=== PATIENT | male | born 1955 | race Caucasian/White ===

== ENCOUNTER → 2016-05-18 | Outpatient (REF) | payer BC ==
[2016-05-18 12:03] LABS: BASO % 0.3 % (0.0-1.0); EOS # 0.2 K/mm3 (0.0-0.50); EOS % 1.8 % (0.0-3.0); LARGE UNSTAINED CELL # 0.2 K/mm3 (0.0-0.4); LARGE UNSTAINED CELL % 1.8 % (0.0-4.0); LYMPH # 1.6 K/mm3 (1.5-4.5); LYMPH % 15.9 % (24.0-44.0); MEAN CORPUSCULAR HEMOGLOBIN 31.5 pg (27.0-33.0); MEAN CORPUSCULAR HGB CONC 33.6 g/dl (32.0-36.5); MEAN CORPUSCULAR VOLUME 93.6 fl (80.0-96.0); MONO # 0.6 K/mm3 (0.0-0.8); NEUTROPHILS # 6.9 K/mm3 (1.8-7.7); NEUTROPHILS % 74.2 % (36.0-66.0); PLATELET COUNT, AUTOMATED 169 k/mm3 (150-450); RED CELL DISTRIBUTION WIDTH 12.3 % (11.5-14.5); WHITE BLOOD COUNT 9.3 K/mm3 (4.0-10.0)
[2016-05-18 12:33] LABS: ALBUMIN 3.8 GM/DL (3.2-5.2); ALBUMIN/GLOBULIN RATIO 1.12 (1.00-1.93); ALKALINE PHOSPHATASE 78 U/L (45-117); ALT/SGPT 35 U/L (12-78); ANION GAP 7 MEQ/L (8-16); AST/SGOT 19 U/L (15-37); BILIRUBIN,TOTAL 0.6 MG/DL (0.2-1.0); BLOOD UREA NITROGEN 19 MG/DL (7-18); CALCIUM LEVEL 9.1 MG/DL (8.8-10.2); CARBON DIOXIDE LEVEL 28 MEQ/L (21-32); CHLORIDE LEVEL 104 MEQ/L (98-107); CHOLESTEROL LEVEL 219 MG/DL (<200); CREATININE FOR GFR 0.97 MG/DL (0.70-1.30); GLOMERULAR FILTRATION RATE > 60.0 (>49); GLUCOSE, FASTING 114 MG/DL (80-110); POTASSIUM SERUM 3.8 MEQ/L (3.5-5.1); SODIUM LEVEL 139 MEQ/L (136-145); TOTAL PROTEIN 7.2 GM/DL (6.4-8.2); TRIGLYCERIDES LEVEL 133 MG/DL (<150)
== END ==
LOC: M LABDRAW1 11:34
PROVIDERS: ATTEND Family Medicine
DX: R73.01 Impaired fasting glucose (principal); E78.2 Mixed hyperlipidemia; I10 Essential (primary) hypertension

== ENCOUNTER → 2016-11-16 | Outpatient (REF) | payer BC ==
[2016-11-16 12:23] LABS: ALBUMIN 3.7 GM/DL (3.2-5.2); ALBUMIN/GLOBULIN RATIO 1.06 (1.00-1.93); ALKALINE PHOSPHATASE 69 U/L (45-117); ALT/SGPT 39 U/L (12-78); ANION GAP 7 MEQ/L (8-16); AST/SGOT 19 U/L (15-37); BILIRUBIN,TOTAL 0.5 MG/DL (0.2-1.0); BLOOD UREA NITROGEN 18 MG/DL (7-18); CALCIUM LEVEL 9.2 MG/DL (8.8-10.2); CARBON DIOXIDE LEVEL 27 MEQ/L (21-32); CHLORIDE LEVEL 103 MEQ/L (98-107); CREATININE FOR GFR 0.95 MG/DL (0.70-1.30); GLOMERULAR FILTRATION RATE > 60.0 (>49); GLUCOSE, FASTING 111 MG/DL (80-110); SODIUM LEVEL 137 MEQ/L (136-145); TOTAL PROTEIN 7.2 GM/DL (6.4-8.2)
== END ==
LOC: M LABDRAW1 10:26
PROVIDERS: ATTEND Family Medicine
DX: E13.9 Other specified diabetes mellitus without complications (principal)

== ENCOUNTER → 2016-11-17 | Outpatient (REF) | payer BC | LOC: M LABDRAW1 09:45 | PROVIDERS: ATTEND Family Medicine | DX: E13.9 Other specified diabetes mellitus without complications (principal) ==

== ENCOUNTER → 2017-05-11 | Outpatient (REF) | payer BC ==
[2017-05-11 16:02] LABS: ALBUMIN 3.9 GM/DL (3.2-5.2); ALBUMIN/GLOBULIN RATIO 0.93 (1.00-1.93); ALKALINE PHOSPHATASE 88 U/L (45-117); ALT/SGPT 40 U/L (12-78); ANION GAP 6 MEQ/L (8-16); AST/SGOT 26 U/L (7-37); BILIRUBIN,TOTAL 0.4 MG/DL (0.2-1.0); BLOOD UREA NITROGEN 14 MG/DL (7-18); CALCIUM LEVEL 9.4 MG/DL (8.8-10.2); CARBON DIOXIDE LEVEL 30 MEQ/L (21-32); CHLORIDE LEVEL 106 MEQ/L (98-107); CREATININE FOR GFR 1.06 MG/DL (0.70-1.30); GLOMERULAR FILTRATION RATE > 60.0 (>49); GLUCOSE, FASTING 111 MG/DL (70-100); POTASSIUM SERUM 4.7 MEQ/L (3.5-5.1); SODIUM LEVEL 142 MEQ/L (136-145); TOTAL PROTEIN 8.1 GM/DL (6.4-8.2)
[2017-05-11 16:14] LABS: ESTIMATED AVERAGE GLUCOSE 160 MG/DL (60-110); HEMOGLOBIN A1c 7.2 %
== END ==
LOC: M LABDRAW1 12:01
DX: E13.9 Other specified diabetes mellitus without complications (principal)
CPT/HCPCS: 80053

== ENCOUNTER → 2017-08-11 | Outpatient (REF) | payer BC ==
[2017-08-11 11:14] LABS: ALBUMIN 3.8 GM/DL (3.2-5.2); ALBUMIN/GLOBULIN RATIO 1.03 (1.00-1.93); ALKALINE PHOSPHATASE 69 U/L (45-117); ALT/SGPT 45 U/L (12-78); ANION GAP 7 MEQ/L (8-16); AST/SGOT 33 U/L (7-37); BILIRUBIN,TOTAL 0.5 MG/DL (0.2-1.0); BLOOD UREA NITROGEN 20 MG/DL (7-18); CARBON DIOXIDE LEVEL 27 MEQ/L (21-32); CHLORIDE LEVEL 106 MEQ/L (98-107); CREATININE FOR GFR 0.96 MG/DL (0.70-1.30); GLOMERULAR FILTRATION RATE > 60.0 (>49); GLUCOSE, FASTING 125 MG/DL (70-100); POTASSIUM SERUM 4.6 MEQ/L (3.5-5.1); SODIUM LEVEL 140 MEQ/L (136-145); TOTAL PROTEIN 7.5 GM/DL (6.4-8.2)
[2017-08-11 11:52] LABS: ESTIMATED AVERAGE GLUCOSE 143 MG/DL (60-110); HEMOGLOBIN A1c 6.6 %
== END ==
LOC: M LABDRAW1 09:25
DX: E11.69 Type 2 diabetes mellitus with other specified complication (principal)
CPT/HCPCS: 80053

== ENCOUNTER → 2017-11-17 | Outpatient (REF) | payer BC ==
[2017-11-17 11:41] LABS: BASO # 0.1 10^3/uL (0.0-0.2); BASO % 0.7 % (0.0-1.0); EOS # 0.5 10^3/uL (0.0-0.50); HEMATOCRIT 43.2 % (42.0-52.0); HEMOGLOBIN 14.2 g/dl (13.5-17.5); IMMATURE GRANULOCYTE % 0.3 % (0-3.0); LYMPH # 1.6 10^3/uL (1.5-4.5); LYMPH % 23.3 % (24.0-44.0); MEAN CORPUSCULAR HEMOGLOBIN 29.6 pg (27.0-33.0); MEAN CORPUSCULAR HGB CONC 32.9 g/dl (32.0-36.5); MEAN CORPUSCULAR VOLUME 90.2 fl (80.0-96.0); MONO # 0.7 10^3/uL (0.0-0.8); MONO % 9.2 % (0.0-5.0); NEUTROPHILS # 4.2 10^3/uL (1.8-7.7); NEUTROPHILS % 59.5 % (36.0-66.0); PLATELET COUNT, AUTOMATED 204 10^3/uL (150-450); RED BLOOD COUNT 4.79 10^6/uL (4.30-6.10); RED CELL DISTRIBUTION WIDTH 13.9 % (11.5-14.5)
[2017-11-17 12:29] LABS: ALBUMIN/GLOBULIN RATIO 1.14 (1.00-1.93); ALKALINE PHOSPHATASE 70 U/L (45-117); ALT/SGPT 35 U/L (12-78); ANION GAP 8 MEQ/L (8-16); AST/SGOT 26 U/L (7-37); BILIRUBIN,TOTAL 0.6 MG/DL (0.2-1.0); BLOOD UREA NITROGEN 15 MG/DL (7-18); CALCIUM LEVEL 9.1 MG/DL (8.8-10.2); CARBON DIOXIDE LEVEL 29 MEQ/L (21-32); CHLORIDE LEVEL 104 MEQ/L (98-107); CHOLESTEROL LEVEL 220 MG/DL (<200); CHOLESTEROL RISK RATIO 4.074 (<5); CREATININE FOR GFR 0.94 MG/DL (0.70-1.30); GLOMERULAR FILTRATION RATE > 60.0 (>49); GLUCOSE, FASTING 111 MG/DL (70-100); HDL CHOLESTEROL 54 MG/DL (>40); LDL CHOLESTEROL 120 MG/DL (<100); NON-HDL-C 166 MG/DL; POTASSIUM SERUM 4.4 MEQ/L (3.5-5.1); SODIUM LEVEL 141 MEQ/L (136-145); TOTAL PROTEIN 7.5 GM/DL (6.4-8.2); TRIGLYCERIDES LEVEL 228 MG/DL (<150)
[2017-11-17 12:34] LABS: ESTIMATED AVERAGE GLUCOSE 143 MG/DL (60-110); HEMOGLOBIN A1c 6.6 %
[2017-11-17 12:51] LABS: MALB URINE SIEMENS 14.4 MG/L
[2017-11-17 12:53] LABS: MAU/CREAT RATIO 12.6 MCG/MG (0.0-30.0)
== END ==
LOC: M LABDRAW1 10:05
DX: E11.69 Type 2 diabetes mellitus with other specified complication (principal)
CPT/HCPCS: 80053

== ENCOUNTER → 2018-05-25 | Outpatient (REF) | payer BC ==
[2018-05-25 13:10] LABS: BASO # 0.1 10^3/uL (0.0-0.2); BASO % 0.7 % (0.0-1.0); EOS # 0.5 10^3/uL (0.0-0.50); EOS % 6.8 % (0.0-3.0); HEMATOCRIT 43.4 % (42.0-52.0); HEMOGLOBIN 14.3 g/dl (13.5-17.5); LYMPH # 1.7 10^3/uL (1.5-4.5); LYMPH % 23.2 % (24.0-44.0); MEAN CORPUSCULAR HGB CONC 32.9 g/dl (32.0-36.5); MEAN CORPUSCULAR VOLUME 93.9 fl (80.0-96.0); MONO # 0.6 10^3/uL (0.0-0.8); MONO % 8.7 % (0.0-5.0); NEUTROPHILS # 4.4 10^3/uL (1.8-7.7); NEUTROPHILS % 60.2 % (36.0-66.0); PLATELET COUNT, AUTOMATED 216 10^3/uL (150-450); RED BLOOD COUNT 4.62 10^6/uL (4.30-6.10); WHITE BLOOD COUNT 7.4 10^3/uL (4.0-10.0)
[2018-05-25 14:16] LABS: MALB URINE SIEMENS 24.5 MG/L; MAU/CREAT RATIO 17.6 MCG/MG (0.0-30.0)
[2018-05-25 14:18] LABS: ALBUMIN 3.8 GM/DL (3.2-5.2); ALT/SGPT 38 U/L (12-78); BILIRUBIN,TOTAL 0.6 MG/DL (0.2-1.0); BLOOD UREA NITROGEN 13 MG/DL (7-18); CALCIUM LEVEL 9.2 MG/DL (8.8-10.2); CARBON DIOXIDE LEVEL 30 MEQ/L (21-32); CHLORIDE LEVEL 104 MEQ/L (98-107); CHOLESTEROL LEVEL 174 MG/DL (<200); CREATININE FOR GFR 0.96 MG/DL (0.70-1.30); GLOMERULAR FILTRATION RATE > 60.0 (>49); GLUCOSE, FASTING 124 MG/DL (70-100); HDL CHOLESTEROL 60 MG/DL (>40); LDL CHOLESTEROL 82 MG/DL (<100); NON-HDL-C 114 MG/DL; POTASSIUM SERUM 4.1 MEQ/L (3.5-5.1); SODIUM LEVEL 138 MEQ/L (136-145); TOTAL PROTEIN 7.5 GM/DL (6.4-8.2); TRIGLYCERIDES LEVEL 159 MG/DL (<150)
[2018-05-25 15:10] LABS: HEMOGLOBIN A1c 7.1 %
== END ==
LOC: M LABDRAW1 12:18
PROVIDERS: ATTEND Family Medicine
DX: E11.69 Type 2 diabetes mellitus with other specified complication (principal)

== ENCOUNTER → 2018-08-22 | Outpatient (REF) | payer BC ==
[2018-08-22 13:32] LABS: BLOOD UREA NITROGEN 18 MG/DL (7-18); CALCIUM LEVEL 8.6 MG/DL (8.8-10.2); CARBON DIOXIDE LEVEL 28 MEQ/L (21-32); CHLORIDE LEVEL 107 MEQ/L (98-107); CREATININE FOR GFR 1.12 MG/DL (0.70-1.30); GLOMERULAR FILTRATION RATE > 60.0 (>49); GLUCOSE, FASTING 160 MG/DL (70-100); SODIUM LEVEL 140 MEQ/L (136-145)
[2018-08-22 13:58] LABS: HEMOGLOBIN A1c 6.9 %
== END ==
LOC: M LABDRAW1 10:34
PROVIDERS: ATTEND Family Medicine
DX: E11.69 Type 2 diabetes mellitus with other specified complication (principal)

== ENCOUNTER → 2018-11-21 | Outpatient (REF) | payer BC ==
[2018-11-21 12:55] LABS: HEMOGLOBIN A1c 6.3 %
== END ==
LOC: M LABDRAW1 08:53
PROVIDERS: ATTEND Family Medicine
DX: E11.69 Type 2 diabetes mellitus with other specified complication (principal)

== ENCOUNTER → 2020-08-20 | Outpatient (CLI) | payer BC ==
[2020-08-20 15:41] LABS: BASO # 0.1 10^3/uL (0.0-0.2); BASO % 0.7 % (0.0-1.0); EOS # 0.4 10^3/uL (0.0-0.5); EOS % 4.9 % (0.0-3.0); HEMATOCRIT 44.1 % (42.0-52.0); HEMOGLOBIN 14.8 g/dl (13.5-17.5); LYMPH # 1.8 10^3/uL (1.5-5.0); LYMPH % 23.6 % (24.0-44.0); MEAN CORPUSCULAR HEMOGLOBIN 32.7 pg (27.0-33.0); MEAN CORPUSCULAR HGB CONC 33.6 g/dl (32.0-36.5); MEAN CORPUSCULAR VOLUME 97.4 fl (80.0-96.0); MONO # 0.9 10^3/uL (0.0-0.8); MONO % 11.5 % (2.0-8.0); NEUTROPHILS # 4.5 10^3/uL (1.5-8.5); NEUTROPHILS % 58.8 % (36.0-66.0); PLATELET COUNT, AUTOMATED 219 10^3/uL (150-450); RED BLOOD COUNT 4.53 10^6/uL (4.30-6.10); WHITE BLOOD COUNT 7.6 10^3/uL (4.0-10.0)
[2020-08-20 15:59] LABS: HEMOGLOBIN A1c 7.7 %
[2020-08-20 16:11] LABS: ALBUMIN 3.7 GM/DL (3.2-5.2); ALT/SGPT 53 U/L (12-78); BILIRUBIN,TOTAL 0.5 MG/DL (0.2-1.0); BLOOD UREA NITROGEN 15 MG/DL (7-18); CALCIUM LEVEL 8.8 MG/DL (8.8-10.2); CARBON DIOXIDE LEVEL 28 MEQ/L (21-32); CHLORIDE LEVEL 105 MEQ/L (98-107); CHOLESTEROL LEVEL 220 MG/DL (<200); CREATININE FOR GFR 1.02 MG/DL (0.70-1.30); GLOMERULAR FILTRATION RATE > 60.0 (>49); GLUCOSE, FASTING 196 MG/DL (70-100); HDL CHOLESTEROL 52 MG/DL (>40); LDL CHOLESTEROL 114 MG/DL (<100); NON-HDL-C 168 MG/DL; POTASSIUM SERUM 4.2 MEQ/L (3.5-5.1); SODIUM LEVEL 138 MEQ/L (136-145); TOTAL PROTEIN 7.6 GM/DL (6.4-8.2); TRIGLYCERIDES LEVEL 268 MG/DL (<150)
[2020-08-20 16:17] LABS: MALB URINE SIEMENS 35.6 MG/L; MAU/CREAT RATIO 36.3 MCG/MG (0.0-30.0)
== END ==
LOC: M WUC 11:42
PROVIDERS: ATTEND Family Medicine
DX: Z00.00 Encounter for general adult medical examination without abnormal findings (principal); E11.69 Type 2 diabetes mellitus with other specified complication

== ENCOUNTER → 2020-11-17 | Outpatient (CLI) | payer BC ==
[2020-11-17 11:10] LABS: ALBUMIN 3.7 GM/DL (3.2-5.2); ALT/SGPT 37 U/L (12-78); BILIRUBIN,TOTAL 0.5 MG/DL (0.2-1.0); BLOOD UREA NITROGEN 18 MG/DL (7-18); CALCIUM LEVEL 9.4 MG/DL (8.8-10.2); CARBON DIOXIDE LEVEL 27 MEQ/L (21-32); CHLORIDE LEVEL 104 MEQ/L (98-107); CHOLESTEROL LEVEL 147 MG/DL (<200); CHOLESTEROL RISK RATIO 2.722 (<5); CREATININE FOR GFR 0.93 MG/DL (0.70-1.30); GLOMERULAR FILTRATION RATE > 60.0 (>49); GLUCOSE, FASTING 147 MG/DL (70-100); HDL CHOLESTEROL 54 MG/DL (>40); LDL CHOLESTEROL 51 MG/DL (<100); NON-HDL-C 93 MG/DL; POTASSIUM SERUM 4.2 MEQ/L (3.5-5.1); SODIUM LEVEL 138 MEQ/L (136-145); TOTAL PROTEIN 7.9 GM/DL (6.4-8.2); TRIGLYCERIDES LEVEL 211 MG/DL (<150)
[2020-11-17 11:35] LABS: HEMOGLOBIN A1c 7.3 %
== END ==
LOC: M WUC 08:49
PROVIDERS: ATTEND Family Medicine
DX: E11.69 Type 2 diabetes mellitus with other specified complication (principal)

== ENCOUNTER → 2021-05-12 | Outpatient (CLI) | payer BC ==
[2021-05-12 13:08] LABS: HEMOGLOBIN A1c 8.3 %
[2021-05-12 13:12] LABS: ALBUMIN 3.8 GM/DL (3.2-5.2); ALT/SGPT 31 U/L (12-78); BILIRUBIN,TOTAL 0.5 MG/DL (0.2-1.0); BLOOD UREA NITROGEN 18 MG/DL (7-18); CALCIUM LEVEL 9.1 MG/DL (8.8-10.2); CARBON DIOXIDE LEVEL 31 MEQ/L (21-32); CHLORIDE LEVEL 107 MEQ/L (98-107); CHOLESTEROL LEVEL 143 MG/DL (<200); CHOLESTEROL RISK RATIO 2.553 (<5); CREATININE FOR GFR 1.03 MG/DL (0.70-1.30); GLOMERULAR FILTRATION RATE > 60.0 (>49); GLUCOSE, FASTING 185 MG/DL (70-100); HDL CHOLESTEROL 56 MG/DL (>40); LDL CHOLESTEROL 42 MG/DL (<100); NON-HDL-C 87 MG/DL; POTASSIUM SERUM 4.3 MEQ/L (3.5-5.1); SODIUM LEVEL 141 MEQ/L (136-145); TOTAL PROTEIN 7.3 GM/DL (6.4-8.2); TRIGLYCERIDES LEVEL 225 MG/DL (<150)
[2021-05-12 13:20] LABS: MALB URINE SIEMENS 40.1 MG/L; MAU/CREAT RATIO 33.6 MCG/MG (0.0-30.0)
== END ==
LOC: M WUC 09:01
PROVIDERS: ATTEND Student in an Organized Health Care Education/Training Program
DX: E11.9 Type 2 diabetes mellitus without complications (principal)

== ENCOUNTER → 2021-05-18 | Outpatient (CLI) | payer BC, MEDICARE | LOC: M WUC 09:44 | PROVIDERS: ATTEND Student in an Organized Health Care Education/Training Program | DX: R05.3 Chronic cough (principal) ==

== ENCOUNTER → 2021-07-15 | Outpatient (CLI) | payer BC, MEDICARE ==
[~2021-07-15] MED LIST: AMLO1TAB24 PO; GABA-282 PO; LISI10TA22 PO; METF500T13 PO; ROSU5TAB5 PO
== END ==
LOC: M LABSMTC 10:43
PROVIDERS: ATTEND Anesthesiology
DX: Z01.812 Encounter for preprocedural laboratory examination (principal)

== ENCOUNTER → 2021-07-15 | Outpatient (CLI) | payer MEDICARE, BC ==
[~2021-07-15] MED LIST changes: +HYDR-3715 PO
== END ==
LOC: M EKG 11:53
PROVIDERS: ATTEND Anesthesiology
DX: Z01.818 Encounter for other preprocedural examination (principal); R03.0 Elevated blood-pressure reading, without diagnosis of hypertension; E11.9 Type 2 diabetes mellitus without complications

== ENCOUNTER 2021-07-20 06:15 | Day surgery (SDC) | payer MEDICARE, BC ==
[~2021-07-20] VITALS: Ht 185.4 cm; Wt 90.3 kg
[~2021-07-20 06:15] MED LIST changes: -HYDR-3715 PO
[2021-07-20] MEDS ORDERED: LR 1,000 ML IV SCH ×3 (06:40→10:45)
[2021-07-20] MEDS ORDERED: INSULIN LISPRO (NovoLOG) PER UNIT SC PRN ×2 (06:40→11:15)
[2021-07-20] MEDS ORDERED: BUPIVACAINE HCL 0.25% 30ML VIAL As Ordered ONE (07:16)
[2021-07-20] MEDS ORDERED: ROCURONIUM BROMIDE 50 MG/5 ML VIAL As Ordered ONE ×2 (08:05→08:19)
[2021-07-20] MEDS ORDERED: MIDAZOLAM INJ 2MG/2ML VIAL (J2250 PER 1MG) As Ordered ONE (08:05)
[2021-07-20] MEDS ORDERED: dexameTHASONE 4 MG/ML 1ML VIAL (J1100 PER 1MG) As Ordered ONE (08:05)
[2021-07-20] MEDS ORDERED: fentaNYL 250 MCG/5 ML INJECTION As Ordered ONE (08:05)
[2021-07-20] MEDS ORDERED: propofoL 200 MG/20 ML VIAL As Ordered ONE (08:05)
[2021-07-20] MEDS ORDERED: LIDOCAINE 2% 100MG/5ML SDV (FOR ANES.) As Ordered ONE (08:05)
[2021-07-20] MEDS ORDERED: ONDANSETRON 4MG 2ML VIAL As Ordered ONE (08:05)
[2021-07-20] MEDS ORDERED: KETOROLAC 60MG 2ML VIAL As Ordered ONE (08:45)
[2021-07-20] MEDS ORDERED: SUGAMMADEX SODIUM 500 MG/5 ML VIAL (BRIDION) As Ordered ONE (08:45)
[2021-07-20] MEDS ORDERED: ACETAMINOPHEN 1000MG 100ML IV BTL (OFIRMEV) (J0131 PER 10MG) As Ordered ONE (08:47)
[2021-07-20] MEDS ORDERED: fentaNYL 100 MCG/2 ML INJECTION IV PRN (10:45)
[2021-07-20] MEDS ORDERED: ONDANSETRON 4MG 2ML VIAL IV PRN (10:45)
[2021-07-20] MEDS ORDERED: HYDROMORPHONE HCL 0.5 MG/ 0.5 ML SYRINGE (J1170 PER 1) IV PRN (10:45)
[2021-07-20] MEDS ORDERED: oxyCODONE 5MG TAB PO PRN (10:45)
[2021-07-20] MEDS ORDERED: ACETAMINOPHEN TAB 650MG DOSE (2X325MG) PO PRN (10:55)
[2021-07-20] MEDS ORDERED: IBUPROFEN 600MG TAB PO PRN (11:00)
[2021-07-20] MEDS ORDERED: NORCO, ANEXSIA 5/325MG TABLET (HYDROcodone/ACETAMINOPHEN) PO PRN (11:00)
[2021-07-20] MEDS ORDERED: HYDR-3715 PO (11:19)
[2021-07-20 13:10] VITALS: BP 157/71
== END 2021-07-20 13:44 | disposition home or self-care (01) ==
LOC: M SDC 06:15
PROVIDERS: ATTEND Surgery
DX: K40.20 Bilateral inguinal hernia, without obstruction or gangrene, not specified as recurrent (principal); E11.9 Type 2 diabetes mellitus without complications; I10 Essential (primary) hypertension; M19.90 Unspecified osteoarthritis, unspecified site; R06.83 Snoring; Z79.899 Other long term (current) drug therapy; Z79.84 Long term (current) use of oral hypoglycemic drugs; Z88.0 Allergy status to penicillin; Z88.1 Allergy status to other antibiotic agents; Z88.2 Allergy status to sulfonamides; Z91.018 Allergy to other foods
CPT/HCPCS: 49650; C1781; J0131; J1100; J1815; J1885; J2250; J2405; J3010; S2900

== ENCOUNTER → 2021-08-10 | Outpatient (REF) | payer MEDICARE ==
[~2021-08-10] MED LIST changes: +HYDR-3715 PO
[2021-08-10 13:28] LABS: HEMOGLOBIN A1c 7.1 %
== END ==
LOC: M LABWUC 11:41
PROVIDERS: ATTEND Student in an Organized Health Care Education/Training Program
DX: E11.9 Type 2 diabetes mellitus without complications (principal)

== ENCOUNTER → 2021-11-23 | Outpatient (REF) | payer MEDICARE ==
[2021-11-23 18:42] LABS: BASO % 0.4 % (0.0-1.0); EOS # 0.4 10^3/uL (0.0-0.5); EOS % 4.5 % (0.0-3.0); HEMATOCRIT 42.7 % (42.0-52.0); HEMOGLOBIN 13.9 g/dl (13.5-17.5); MEAN CORPUSCULAR HEMOGLOBIN 32.3 pg (27.0-33.0); MEAN CORPUSCULAR HGB CONC 32.6 g/dl (32.0-36.5); MEAN CORPUSCULAR VOLUME 99.1 fl (80.0-96.0); MONO # 0.8 10^3/uL (0.0-0.8); MONO % 8.4 % (2.0-8.0); NEUTROPHILS # 6.2 10^3/uL (1.5-8.5); NEUTROPHILS % 65.4 % (36.0-66.0); PLATELET COUNT, AUTOMATED 203 10^3/uL (150-450); RED BLOOD COUNT 4.31 10^6/uL (4.30-6.10); WHITE BLOOD COUNT 9.5 10^3/uL (4.0-10.0)
[2021-11-23 21:25] LABS: HEMOGLOBIN A1c 6.8 %
== END ==
LOC: M LABWUC 16:40
PROVIDERS: ATTEND Student in an Organized Health Care Education/Training Program
DX: R05.3 Chronic cough (principal); E11.9 Type 2 diabetes mellitus without complications

== ENCOUNTER → 2022-09-09 | Outpatient (REF) | payer MEDICARE ==
[2022-09-09 17:04] LABS: ALBUMIN 3.7 G/DL (3.2-5.2); ALKALINE PHOSPHATASE 69 U/L (46-116); ALT/SGPT 34 U/L (7.0-40); AST/SGOT 23 U/L (<34); BILIRUBIN,TOTAL 0.6 MG/DL (0.3-1.2); BLOOD UREA NITROGEN 18 MG/DL (9-23); CALCIUM LEVEL 9.7 MG/DL (8.3-10.6); CARBON DIOXIDE LEVEL 27 MMOL/L (20-31); CHLORIDE LEVEL 103 MMOL/L (98-107); CHOLESTEROL LEVEL 116 MG/DL (<200); CHOLESTEROL RISK RATIO 1.98 (<5); CREATININE FOR GFR 0.89 MG/DL (0.70-1.30); GLOMERULAR FILTRATION RATE > 60.0 (>49); GLUCOSE, FASTING 124 MG/DL (74-106); HDL CHOLESTEROL 58.4 MG/DL (>40); LDL CHOLESTEROL 35.6 MG/DL (<100); NON-HDL-C 57.6 MG/DL; POTASSIUM SERUM 4.5 MMOL/L (3.5-5.1); SODIUM LEVEL 141 MMOL/L (136-145); TOTAL PROTEIN 7.1 G/DL (5.7-8.2); TRIGLYCERIDES LEVEL 110 MG/DL (<150)
== END ==
LOC: M LABWUC 16:09
PROVIDERS: ATTEND Student in an Organized Health Care Education/Training Program
DX: I10 Essential (primary) hypertension (principal)

== ENCOUNTER → 2023-05-19 | Outpatient (CLI) | payer MEDICARE ==
[2023-05-19 12:37] LABS: BASO % 0.3 % (0.0-1.0); EOS # 0.3 10^3/uL (0.0-0.5); EOS % 4.6 % (0.0-3.0); HEMATOCRIT 42.3 % (42.0-52.0); HEMOGLOBIN 14.2 g/dl (13.5-17.5); LYMPH # 1.3 10^3/uL (1.5-5.0); LYMPH % 18.1 % (24.0-44.0); MEAN CORPUSCULAR HEMOGLOBIN 32.9 pg (27.0-33.0); MEAN CORPUSCULAR HGB CONC 33.6 g/dl (32.0-36.5); MEAN CORPUSCULAR VOLUME 98.1 fl (80.0-96.0); MONO # 0.9 10^3/uL (0.0-0.8); MONO % 13.5 % (2.0-8.0); NEUTROPHILS # 4.4 10^3/uL (1.5-8.5); NEUTROPHILS % 63.2 % (36.0-66.0); PLATELET COUNT, AUTOMATED 178 10^3/uL (150-450); RED BLOOD COUNT 4.31 10^6/uL (4.30-6.10)
[2023-05-19 12:43] LABS: FREE T4 1.19 NG/DL (0.89-1.76); IRON (FE) 81 UG/DL (65-175); THYROID STIMULATING HORMONE 0.505 uIU/ML (0.55-4.78)
[2023-05-19 12:44] LABS: ALBUMIN 3.7 G/DL (3.2-5.2); ALKALINE PHOSPHATASE 67 U/L (46-116); ALT/SGPT 32 U/L (7.0-40); AST/SGOT 29 U/L (<34); BILIRUBIN,TOTAL 0.6 MG/DL (0.3-1.2); BLOOD UREA NITROGEN 12 MG/DL (9-23); CARBON DIOXIDE LEVEL 29 MMOL/L (20-31); CHLORIDE LEVEL 102 MMOL/L (98-107); CHOLESTEROL LEVEL 117 MG/DL (<200); CHOLESTEROL RISK RATIO 2.13 (<5); CREATININE FOR GFR 0.99 MG/DL (0.70-1.30); FERRITIN 53.7 NG/ML (10.5-307.3); GLOMERULAR FILTRATION RATE > 60.0 (>49); GLUCOSE, FASTING 149 MG/DL (74-106); HDL CHOLESTEROL 54.7 MG/DL (>40); LDL CHOLESTEROL 36.1 MG/DL (<100); NON-HDL-C 62.3 MG/DL; PERCENT SATURATION 23.8 % (19.7-50.0); POTASSIUM SERUM 4.1 MMOL/L (3.5-5.1); SODIUM LEVEL 139 MMOL/L (136-145); TOTAL 25(OH) VITAMIN D 28.7 NG/ML (20.0-100.0); TOTAL IRON BINDING CAPACITY 341 UG/DL (250-425); TOTAL PROTEIN 7.1 G/DL (5.7-8.2); TRIGLYCERIDES LEVEL 131 MG/DL (<150)
[2023-05-19 12:45] LABS: VITAMIN B12 LEVEL 331 PG/ML (211-911)
[2023-05-19 12:50] LABS: CPK CREATINE PHOSPHOKINASE 272 U/L (46-171); FOLATE 17.8 NG/ML (>5.4)
[2023-05-19 12:54] LABS: HEMOGLOBIN A1c 6.9 % (4.0-6.0)
== END ==
LOC: M WUC 09:22
PROVIDERS: ATTEND Physician Assistant
DX: I10 Essential (primary) hypertension (principal); E11.9 Type 2 diabetes mellitus without complications; R53.83 Other fatigue

== ENCOUNTER → 2023-06-20 | Outpatient (CLI) | payer MEDICARE, OTHER ==
[~2023-06-20] MED LIST changes: +ROSU5TAB40 PO; -ROSU5TAB5 PO
[2023-06-20 13:40] LABS: URIC ACID 5.8 MG/DL (3.7-9.2)
[2023-06-20 13:42] LABS: C REACTIVE PROTEIN QUANTITATIV < 0.40 MG/DL (<1.0)
[2023-06-20 13:43] LABS: CPK CREATINE PHOSPHOKINASE 176 U/L (46-171); RHEUMATOID FACTOR QUANT 7.6 IU/ML (<14)
[2023-06-20 13:44] LABS: THYROID STIMULATING HORMONE 1.053 uIU/ML (0.55-4.78)
[2023-06-20 13:45] LABS: THYROID PEROXIDASE ANTIBODY 45 U/ML (<60.0)
[2023-06-20 13:46] LABS: FREE T4 1.32 NG/DL (0.89-1.76)
== END ==
LOC: M WUC 10:01
PROVIDERS: ATTEND Physician Assistant
DX: R74.8 Abnormal levels of other serum enzymes (principal); M79.10 Myalgia, unspecified site

== ENCOUNTER → 2023-08-03 | Outpatient (CLI) | payer MEDICARE, OTHER ==
[2023-08-04 18:07] LABS: ANA PATTERN Nuclear, Homogeneous (NEGATIVE); ANA PATTERN 2 Nuclear, Speckled; ANA SCREEN, IFA POSITIVE (NEGATIVE)
== END ==
LOC: M WUC 09:23
PROVIDERS: ATTEND Physician Assistant
DX: M79.10 Myalgia, unspecified site (principal); G89.29 Other chronic pain; M54.42 Lumbago with sciatica, left side; M47.896 Other spondylosis, lumbar region; M46.96 Unspecified inflammatory spondylopathy, lumbar region

== ENCOUNTER → 2023-11-09 | Outpatient (REF) | payer MEDICARE, OTHER ==
[~2023-11-09] MED LIST changes: +GABA-1172 PO; -GABA-282 PO
[2023-11-09 18:00] LABS: CREATININE, URINE 97.7 MG/DL
[2023-11-09 18:02] LABS: MAU/CREAT RATIO 8.1 MCG/MG (0.0-30.0)
[2023-11-09 18:04] LABS: C REACTIVE PROTEIN QUANTITATIV < 0.40 MG/DL (<1.0)
[2023-11-09 18:05] LABS: ALBUMIN 3.8 G/DL (3.2-5.2); ALKALINE PHOSPHATASE 73 U/L (46-116); ALT/SGPT 30 U/L (7.0-40); AST/SGOT 21 U/L (<34); BILIRUBIN,TOTAL 0.7 MG/DL (0.3-1.2); BLOOD UREA NITROGEN 18 MG/DL (9-23); CALCIUM LEVEL 9.5 MG/DL (8.3-10.6); CARBON DIOXIDE LEVEL 27 MMOL/L (20-31); CHLORIDE LEVEL 102 MMOL/L (98-107); CPK CREATINE PHOSPHOKINASE 255 U/L (46-171); CREATININE FOR GFR 0.97 MG/DL (0.70-1.30); GLOMERULAR FILTRATION RATE > 60.0 (>49); GLUCOSE, FASTING 161 MG/DL (74-106); POTASSIUM SERUM 4.6 MMOL/L (3.5-5.1); SODIUM LEVEL 135 MMOL/L (136-145); TOTAL PROTEIN 7.5 G/DL (5.7-8.2)
[2023-11-09 18:57] LABS: HEMOGLOBIN A1c 6.8 % (4.0-6.0)
== END ==
LOC: M SFHCLERA 09:05
PROVIDERS: ATTEND Family Medicine
DX: E11.9 Type 2 diabetes mellitus without complications (principal); M79.10 Myalgia, unspecified site; R74.8 Abnormal levels of other serum enzymes

== ENCOUNTER → 2024-05-20 | Outpatient (CLI) | payer MEDICARE, OTHER ==
[~2024-05-20] MED LIST changes: -ROSU5TAB40 PO; +ROSU5TAB49 PO
[2024-05-20 14:24] LABS: BASO % 0.4 % (0.0-1.0); EOS # 0.4 10^3/uL (0.0-0.5); EOS % 4.8 % (0.0-3.0); HEMATOCRIT 43.8 % (42.0-52.0); HEMOGLOBIN 14.7 g/dl (13.5-17.5); LYMPH # 1.9 10^3/uL (1.5-5.0); LYMPH % 21.3 % (24.0-44.0); MEAN CORPUSCULAR HEMOGLOBIN 32.8 pg (27.0-33.0); MEAN CORPUSCULAR HGB CONC 33.6 g/dl (32.0-36.5); MEAN CORPUSCULAR VOLUME 97.8 fl (80.0-96.0); MONO # 0.9 10^3/uL (0.0-0.8); MONO % 9.7 % (2.0-8.0); NEUTROPHILS # 5.7 10^3/uL (1.5-8.5); NEUTROPHILS % 63.2 % (36.0-66.0); PLATELET COUNT, AUTOMATED 201 10^3/uL (150-450); RED BLOOD COUNT 4.48 10^6/uL (4.30-6.10)
[2024-05-20 14:26] LABS: URIC ACID 6.6 MG/DL (3.7-9.2)
[2024-05-20 14:27] LABS: C REACTIVE PROTEIN QUANTITATIV < 0.50 MG/DL (<1.0)
[2024-05-20 14:28] LABS: CPK CREATINE PHOSPHOKINASE 168 U/L (46-171)
[2024-05-20 14:29] LABS: ALBUMIN 3.6 G/DL (3.2-5.2); ALKALINE PHOSPHATASE 68 U/L (40-129); ALT/SGPT 33 U/L (7.0-40); AST/SGOT 21 U/L (<34); BILIRUBIN,TOTAL 0.6 MG/DL (0.3-1.2); BLOOD UREA NITROGEN 15 MG/DL (9-23); CALCIUM LEVEL 8.8 MG/DL (8.3-10.6); CARBON DIOXIDE LEVEL 27 MMOL/L (20-31); CHLORIDE LEVEL 103 MMOL/L (98-107); CREATININE FOR GFR 0.93 MG/DL (0.70-1.30); GLOMERULAR FILTRATION RATE 89.4 (>49); GLUCOSE, FASTING 147 MG/DL (74-106); POTASSIUM SERUM 4.1 MMOL/L (3.5-5.1); SODIUM LEVEL 140 MMOL/L (136-145); TOTAL PROTEIN 7.4 G/DL (5.7-8.2)
[2024-05-20 14:32] LABS: ERYTHROCYTE SEDIMENTATION RATE 24 mm/hr (0-20)
[2024-05-20 14:33] LABS: RHEUMATOID FACTOR QUANT < 3.5 IU/ML (<14)
[2024-05-20 14:43] LABS: CREATININE, URINE 133.9 MG/DL; MAU/CREAT RATIO 24.6 MCG/MG (0.0-30.0)
[2024-05-22 12:37] LABS: ANA SCREEN, IFA NEGATIVE (NEGATIVE)
== END ==
LOC: M WUC 10:31
PROVIDERS: ATTEND Family Medicine
DX: E11.9 Type 2 diabetes mellitus without complications (principal); R53.83 Other fatigue; R76.8 Other specified abnormal immunological findings in serum

== ENCOUNTER → 2024-08-26 | Outpatient (CLI) | payer MEDICARE, OTHER | LOC: M RAD 11:33 | PROVIDERS: ATTEND Pain Medicine Interventional Pain Medicine | DX: M48.061 Spinal stenosis, lumbar region without neurogenic claudication (principal); M47.816 Spondylosis without myelopathy or radiculopathy, lumbar region ==

== ENCOUNTER → 2024-11-04 | Outpatient (CLI) | payer MEDICARE, OTHER ==
[2024-11-04 15:06] LABS: ALT/SGPT 27.0 U/L (7.0-40); AST/SGOT 24.0 U/L (<34); CALCIUM LEVEL 9.4 MG/DL (8.3-10.6); CARBON DIOXIDE LEVEL 27.0 MMOL/L (20-31); CHLORIDE LEVEL 102.0 MMOL/L (98-107); CREATININE FOR GFR 1.02 MG/DL (0.70-1.30); GLOMERULAR FILTRATION RATE 80.1 (>49); POTASSIUM SERUM 4.3 MMOL/L (3.5-5.1); SODIUM LEVEL 135.0 MMOL/L (136-145)
[2024-11-04 15:30] LABS: ESTIMATED AVERAGE GLUCOSE 143.0 MG/DL (60-110)
== END ==
LOC: M WUC 09:37
PROVIDERS: ATTEND Family Medicine
DX: E11.9 Type 2 diabetes mellitus without complications (principal)